=== PATIENT | female | born 1995 | race Caucasian/White ===

== ENCOUNTER 2019-11-21 02:07 | Outpatient (CLI) | payer MEDICAID, SELFPAY ==
--- NOTE | 2019-11-21 12:30 | DI.US_ITS ---
EXAM: US PELVIS TRANSVAGINAL CLINICAL HISTORY: IUD survellience, AUB, Z30.431. TECHNIQUE: Transabdominal and transvaginal pelvic ultrasound was performed using standard protocol. COMPARISON: No exams were available for comparison FINDINGS: KIDNEYS: Kidneys are symmetric in size. No evidence of renal calculi. No evidence of hydronephrosis. No renal mass or cyst identified. UTERUS: Position: Anteverted. Size: 6.8 long by 4.6 transverse by 2.4 AP cm Endometrium: 0.3 cm. Normal for patient's menstrual status. There is an intrauterine device in good p osition within the endometrial canal. Myometrium: Unremarkable. Cervix: Unremarkable. OVARIES: Right: 3 x 2.7 x 2.3 cm Cyst or mass: Small follicular cysts. Left: 3.9 x 1.5 x 2.0 cm Cyst or mass: Small follicular cysts. DOPPLER: Color: Symmetric and uniform flow to both ovaries. No hyperemia. Duplex: Normal ovarian arterial waveforms visualized. CUL-DE-SAC: Free fluid: Small amount of free fluid in the cul-de-sac. Other: None. IMPRESSION: 1. Normal sonographic appearance of the kidneys. 2. Normal-appearing uterus with endometrial stripe within normal limits. IUD in good position. 3. Unremarkable bilateral ovaries. DATA REPOSITORY:
== END 2019-11-21 02:27 ==
PROVIDERS: Visit Provider Nurse Practitioner Women's Health
DX: N93.8 Other specified abnormal uterine and vaginal bleeding (principal); Z30.431 Encounter for routine checking of intrauterine contraceptive device
CPT/HCPCS: 76830; 76856

== ENCOUNTER 2019-11-28 03:01 | Outpatient (CLI) | payer MEDICAID, SELFPAY ==
[2019-11-28 09:30] LABS: TSH (W/Ref FT4) 2.12 uIU/mL (0.36-3.74)
[2019-11-28 09:32] LABS: HCG Quant, Pregnancy < 1 mIU/mL (1-3)
== END 2019-11-28 03:21 ==
PROVIDERS: Visit Provider Nurse Practitioner Women's Health
DX: N93.9 Abnormal uterine and vaginal bleeding, unspecified (principal)
CPT/HCPCS: 36415; 84443; 84702